=== PATIENT | female | born 1955 | race Caucasian/White ===

== ENCOUNTER 2016-04-07 12:53 | Emergency (ER) | payer BC ==
[2016-04-07 13:17] VITALS: BP 160/88
--- NOTE | 2016-04-07 15:39 | RAD ---
HISTORY: Trauma, left hip pain COMPARISONS: None VIEWS: 3, Frontal view of the pelvis with frontal and frog-leg views of the left hip FINDINGS: BONE DENSITY: Normal. BONES: There is no displaced fracture. JOINTS: There is mild osteoarthritis of the hips and SI joints. ALIGNMENT: There is no dislocation. SOFT TISSUES: Unremarkable. OTHER FINDINGS: Degenerative changes are noted of the spine IMPRESSION: NO RADIOGRAPHIC EVIDENCE FOR HIP FRACTURE. X-RAYS MAY BE NEGATIVE WITH NONDISPLACED HIP FRACTURE, IF THERE IS PERSISTENT CLINICAL CONCERN, RECOMMEND CONSIDERATION OF MRI. IN THE SETTING OF CONTRAINDICATION TO MRI OR LIMITATION IN EMERGENT ACCESS TO MRI, CT WOULD BE SUGGESTED.
--- NOTE | 2016-04-07 15:40 | RAD ---
HISTORY: Trauma, low back pain COMPARISONS: None VIEWS: 3 , Frontal, lateral, and coned-down lateral sacral views of the lumbar spine FINDINGS: ALIGNMENT: The alignment is normal. VERTEBRAL BODIES: There is multilevel anterolateral marginal osteophyte formation. JOINTS: There is mild facet osteoarthritic change diffusely INTERVERTEBRAL DISCS: There is diffuse loss of intervertebral disc height. SOFT TISSUE: Unremarkable. OTHER: The pelvis is unremarkable. The lung bases are clear. IMPRESSION: DEGENERATIVE DISC DISEASE AND OSTEOARTHRITIS.
--- NOTE | 2016-04-07 16:16 | UC ---
Hip/Pelvis Pain - HPI Summary HPI Summary: FALL BACKWARDS FOUR DAYS AGO HIT TAILBONE AND BACK OF HEAD. NO LOC, NO NECK PAIN. TAILBONE PAIN RESOLVED. HOWEVER, LEFT HIP PAIN AND SPASMS THAT RADIATE DOWN LEG HAVE GOTTEN WORSE SINCE INJURY. - History Of Current Complaint Chief Complaint: UCBackPain Stated Complaint: LEFT HIP PAIN Time Seen by Provider: 04/07/16 15:02 Hx Obtained From: Patient, Family/[employer] Onset/Duration: Sudden Onset, Lasting Days, Still Present Severity Initially: Mild Severity Currently: Moderate Location: Discrete At: - LEFT HIP, Radiates To: - LEFT KNEE Character Of Pain: Dull, Aching, Spasmodic Aggravating Factor(s): Movement, Weight Bearing Alleviating Factor(s): Nothing - Risk Factors Septic Arthritis Risk Factor: Negative - Allergies/Home Medications Allergies/Adverse Reactions: Allergies Allergy/AdvReac Type Severity Reaction Status Date / Time Codeine Allergy See Comment Verified 04/07/16 13:17 Home Medications: Home Medications Lisinopril TAB* [Prinivil TAB*] 5 mg PO DAILY 04/07/16 [History Confirmed ] PMH/Surg Hx/FS Hx/Imm Hx Previously Healthy: Yes Cardiovascular History Of: Reports: Hypertension - Surgical History Surgical History: Yes Surgery Procedure, Year, and Place: Cervical spine surgery - Family History Known Family History: Negative: Other - NO JOINT LAXITY DISORDERS - Social History Occupation: Employed Full-time Lives: With Family Alcohol Use: Occasionally Substance Use Type: None Smoking Status (MU): Never Smoked Tobacco Review of Systems Constitutional: Negative Skin: Negative Eyes: Negative ENT: Negative Respiratory: Negative Cardiovascular: Negative Gastrointestinal: Negative Genitourinary: Negative Motor: Negative Neurovascular: Negative Musculoskeletal: Arthralgia - LEFT HIP, Myalgia Neurological: Negative Psychological: Negative All Other Systems Reviewed And Are Negative: Yes Physical Exam Triage Information Reviewed: Yes Appearance: Well-Appearing, Well-Nourished, Pain Distress - MODERATE Vital Signs: Initial Vital Signs Temp 98.0 F 04/07/16 13:13 Pulse 85 04/07/16 13:13 Resp 16 04/07/16 13:13 BP 160/88 04/07/16 13:13 Pulse Ox 100 04/07/16 13:13 Eye Exam: Normal Eyes: Positive: Conjunctiva Clear ENT Exam: Normal ENT: Positive: Normal ENT inspection, Hearing grossly normal, Pharynx normal, TMs normal Dental Exam: Normal Neck exam: Normal Neck: Positive: Supple, Nontender Respiratory Exam: Normal Respiratory: Positive: Chest non-tender, Lungs clear, Normal breath sounds, No respiratory distress, No accessory muscle use Cardiovascular Exam: Normal Cardiovascular: Positive: RRR, No Murmur, Pulses Normal, Brisk Capillary Refill Abdominal Exam: Normal Abdomen Description: Positive: Nontender, No Organomegaly Musculoskeletal: Positive: ROM Intact, No Edema, Strength Limited @ - LEFT HIP, Other: - PALPABLE SPASM LEFT HIP LEFT GLUTEUS Neurological Exam: Normal Psychological Exam: Normal Skin Exam: Normal Hip Injury Course/Dx - Differential Dx/Diagnosis Differential Diagnosis/HQI/PQRI: Sprain, Strain Provider Diagnoses: SCIATICA. LEFT PIRIFORMITIS. LEFT HIP SPRAIN Discharge - Discharge Plan Condition: Stable Disposition: HOME Prescriptions: Diazepam TAB(*) [Valium TAB(*)] 5 mg PO TID PRN #15 tab MDD THREE TABS PRN Reason: Spasms Patient Education Materials: Hip Sprain (ED) Referrals: Akshat Smith MD [Medical Doctor] - Mary Toney MD [Primary Care Provider] - Bess Hand MD [Medical Doctor] - Additional Instructions: PLEASE CALL ORTHOPEDIC PHYSICIAN FOR PROMPT FOLLOW UP. THEY MAY ELECT TO ORDEWR YOU AN MRI. IN THE MEAN TIME PLEASE STAY NON-WEIGHT BEARING AND TAKE MUSCLE RELAXERS, DIRECTED, TO CONTROL SPASMS. PT REFERRAL PROVIDED NEEDED AFTER ORTHO CONSULT. PHYSICAL THERAPY REFERRAL: You have been prescribed physical therapy. Treatments may include stretching, exercise, application of heat or cold, and other modalities. After an injury, PT can reduce swelling and pain. In recovery, PT is used to restore mobility and strength. Your specific treatment goals are: __x___ Reduction of Swelling (EGS, US, ice as needed) ___x__ Pain Reduction (EGS, US, ice as needed) ___x__ TENS Pack Fitting and Instruction Wound Hydrotherapy ___x__ Preservation of Mobility ___x__ Advent of Mobility ___x__ Strength Advent ___x__ Work or Sports Hardening This instruction sheet also serves as your PHYSICAL THERAPY REFERRAL! Please take it with you to the therapist, so he/she will be aware of your diagnosis and treatment plan. You may see the physical therapist of your choice for these treatments, but may wish to check with your insurance to be sure the provider you select is covered. It's important to see the doctor to whom you have been referred for follow up.
== END 2016-04-07 16:27 | disposition home or self-care (01) ==
LOC: UCCORT 12:53
DX: M54.32 Sciatica, left side (principal); S73.102A Unspecified sprain of left hip, initial encounter; W19.XXXA Unspecified fall, initial encounter; Y93.9 Activity, unspecified; Y92.9 Unspecified place or not applicable; Z88.5 Allergy status to narcotic agent
CPT/HCPCS: 72100; 99203; G0463